=== PATIENT | male | born 1940 | race Caucasian/White ===

== ENCOUNTER 2019-12-08 12:34 | Inpatient (IN) | payer MEDICARE, BC ==
[~2019-12-08] VITALS: Ht 188 cm; Wt 150.0 kg
[2019-12-08] MEDS ORDERED: CefTRIAXone 2gm/D5W 50ml 50 ML IV ONE (13:05)
[2019-12-08] MEDS ORDERED: normal saline 1000ML IV soln IV ONE (13:05)
[2019-12-08] MEDS ORDERED: ipratropium/albuterol 3ml nebule NEB ONE (13:05)
[2019-12-08] MEDS ORDERED: methylPREDNISolone sod succ 125mg/2ml vial IV ONE (13:05)
[2019-12-08 13:36] LABS: BASOPHILS % (AUTO) 0.4 % (0-1); EOSINOPHILS % (AUTO) 0 % (0-6); LYMPHOCYTES # (AUTO) 1.3 X10'3 (1.1-4.8); LYMPHOCYTES % (AUTO) 12.7 % (21-51); MEAN CORPUSCULAR HEMOGLOBIN 32.6 PG (27.0-31.0); MEAN CORPUSCULAR HGB CONC 34.4 g/dL (33.0-36.5); MEAN CORPUSCULAR VOLUME 94.8 FL (78-98); MEAN PLATELET VOLUME 8.5 FL (7.4-10.4); MONOCYTES # (AUTO) 1.7 X10'3 (0-0.9); MONOCYTES % (AUTO) 16.5 % (2-12); NEUTROPHILS # (AUTO) 7.3 X10'3 (1.8-7.7); NEUTROPHILS % (AUTO) 70.4 % (42-75); PLATELET COUNT 148 X10'3 (140-440); RED CELL DISTRIBUTION WIDTH 14.8 % (11.5-14.5); WHITE BLOOD COUNT 10.4 X10'3 (4.5-11.0)
[2019-12-08 13:41] LABS: HEMOGLOBIN 18.6 g/dl (14.0-17.9)
[2019-12-08 13:43] LABS: ALANINE AMINOTRANSFERASE 25 U/L (12-78); ALBUMIN 3.8 G/DL (3.4-5.0); ALBUMIN/GLOBULIN RATIO 1.1 (1.1-1.5); ALKALINE PHOSPHATASE 56 IU/L (46-116); ANION GAP 10 (8-16); ASPARTATE AMINO TRANSFERASE 27 U/L (10-37); BILIRUBIN,TOTAL 1.4 MG/DL (0.1-1.0); BLOOD UREA NITROGEN 26 MG/DL (7-18); BUN/CREATININE RATIO 6.9 (5.4-32.0); CALCIUM 8.9 MG/DL (8.5-10.1); CHLORIDE 104 MMOL/L (99-107); CREATININE 3.79 MG/DL (0.60-1.10); GLUCOSE 122 MG/DL (70-104); SODIUM 139 MMOL/L (135-145); TOTAL CARBON DIOXIDE 24.9 MMOL/L (24-32); TOTAL PROTEIN 7.4 G/DL (6.4-8.2); eGFR 15 ML/MIN
[2019-12-08] MEDS ORDERED: AMLO5TAB PO (13:48)
[2019-12-08] MEDS ORDERED: WARF6TAB49 PO (13:48)
[2019-12-08] MEDS ORDERED: LISI10TA4 PO (13:48)
[2019-12-08] MEDS ORDERED: ondansetron/PF 4mg/2ml inj IV PRN (14:20)
[2019-12-08] MEDS ORDERED: HYDROcodone/acetaminophen 5mg/325mg tablet PO PRN (14:20)
[2019-12-08] MEDS ORDERED: HYDROcodone/acetaminophen 10/325mg tab PO PRN (14:20)
[2019-12-08] MEDS ORDERED: acetaminophen 325mg tablet PO PRN ×2 (14:20)
[2019-12-08] MEDS ORDERED: potassium CL 10mEq/100ml bag 100 ML IV PRN ×2 (14:20)
[2019-12-08] MEDS ORDERED: magnesium 4gm in 100ml NS 100 ML IV PRN (14:20)
[2019-12-08] MEDS ORDERED: magnesium 2GM in 50ml NS 50 ML IV PRN (14:20)
[2019-12-08] MEDS ORDERED: magnesium hydroxide 30ml (MOM) UD suspension PO PRN (14:20)
[2019-12-08] MEDS ORDERED: potassium Cl 20 mEq SR tablet PO PRN ×2 (14:20)
[2019-12-08 14:34] LABS: PLATELET ESTIMATE NORMAL; TOTAL CELLS COUNTED 100
[2019-12-08] MEDS: ipratropium/albuterol 3ml nebule NEB SCH ×2 (15:00→21:20)
[2019-12-08] MEDS: normal saline 1000ml 1,000 ML IV SCH ×2 (15:49→21:55)
[2019-12-08] MEDS: K and/or MAG REPLACEMENT MC SCH (20:00)
--- NOTE | 2019-12-08 20:26 | NUR ---
IPA 347B. PT CURRENTLY SITTING UP AT EDGE OF BED. VSS, AFEBRILE. REPORTS HE HAS INTERMITTENT PAIN TO HIS RIGHT CHEST WITH DEEP INSPIRATION. STATES NO CP OTHERWISE. REPORTS HE USES CPAP AT NIGHT AND HAS HIS OWN UNIT.
[2019-12-08] MEDS: oseltamivir phos 75mg capsule PO SCH (20:38)
[2019-12-08 21:00] VITALS: BP 141/69
[2019-12-08] MEDS ORDERED: warfarin 3mg tablet PO ONE (21:00)
[2019-12-08] MEDS: budesonide 0.5mg/2ml UD nebule IH SCH (21:21)
[2019-12-09 00:37] VITALS: BP 92/51
[2019-12-09 04:55] LABS: BASOPHILS % (AUTO) 0 % (0-1); EOSINOPHILS % (AUTO) 0 % (0-6); HEMATOCRIT 50.7 % (42.0-52.0); HEMOGLOBIN 17.3 g/dl (14.0-17.9); LYMPHOCYTES % (AUTO) 11.9 % (21-51); MEAN CORPUSCULAR HEMOGLOBIN 32.4 PG (27.0-31.0); MEAN CORPUSCULAR HGB CONC 34.2 g/dL (33.0-36.5); MEAN CORPUSCULAR VOLUME 94.8 FL (78-98); MEAN PLATELET VOLUME 8.4 FL (7.4-10.4); MONOCYTES # (AUTO) 0.3 X10'3 (0-0.9); MONOCYTES % (AUTO) 3.4 % (2-12); NEUTROPHILS # (AUTO) 7.4 X10'3 (1.8-7.7); NEUTROPHILS % (AUTO) 84.7 % (42-75); PLATELET COUNT 144 X10'3 (140-440); RED BLOOD COUNT 5.35 X10'6 (4.70-6.10); RED CELL DISTRIBUTION WIDTH 14.9 % (11.5-14.5); WHITE BLOOD COUNT 8.8 X10'3 (4.5-11.0)
[2019-12-09 05:06] LABS: ALANINE AMINOTRANSFERASE 24 U/L (12-78); ALBUMIN 3.4 G/DL (3.4-5.0); ALBUMIN/GLOBULIN RATIO 0.9 (1.1-1.5); ALKALINE PHOSPHATASE 53 IU/L (46-116); ANION GAP 11 (8-16); ASPARTATE AMINO TRANSFERASE 26 U/L (10-37); BILIRUBIN,TOTAL 0.5 MG/DL (0.1-1.0); BLOOD UREA NITROGEN 33 MG/DL (7-18); BUN/CREATININE RATIO 12.9 (5.4-32.0); CHLORIDE 107 MMOL/L (99-107); CREATININE 2.55 MG/DL (0.60-1.10); GLUCOSE 206 MG/DL (70-104); MAGNESIUM 1.9 MG/DL (1.5-2.4); POTASSIUM 3.8 MMOL/L (3.5-5.1); SODIUM 141 MMOL/L (135-145); eGFR 24 ML/MIN
--- NOTE | 2019-12-09 06:18 | NUR ---
Problems reprioritized. Patient report given, questions answered & plan of care reviewed with SHIV Aviles. Addendum: 12/09/19 at 0618 by Frida Marcus RN Amended: Links added.
--- NOTE | 2019-12-09 06:20 | NUR ---
Patient in room [facility] 347. I have received report from SHIV Schaefer and had the opportunity to ask questions and assume patient care.
[2019-12-09 07:00] VITALS: BP 131/68
[2019-12-09] MEDS: K and/or MAG REPLACEMENT MC SCH ×2 (07:06→20:00)
[2019-12-09] MEDS: oseltamivir phos 75mg capsule PO SCH ×2 (07:41→20:20)
[2019-12-09] MEDS ORDERED: azithromycin 250mg tablet PO SCH (08:00)
[2019-12-09] MEDS ORDERED: CefTRIAXone/D5W-Rocephin 1gm 50 ML IV SCH (08:00)
[2019-12-09] MEDS: normal saline 1000ml 1,000 ML IV SCH ×2 (10:17→15:47)
[2019-12-09] MEDS: budesonide 0.5mg/2ml UD nebule IH SCH ×2 (10:32→20:39)
[2019-12-09] MEDS: ipratropium/albuterol 3ml nebule NEB SCH ×3 (10:32→20:39)
[2019-12-09 11:00] VITALS: BP 137/55
[2019-12-09] MEDS ORDERED: LIDOcaine/PRILOcaine 5gm cream TP PRN (18:10)
--- NOTE | 2019-12-09 18:16 | NUR ---
Problems reprioritized. Patient report given, questions answered & plan of care reviewed with SHIV Lim.
[2019-12-09 18:50] VITALS: BP 144/60
[2019-12-09] MEDS: methylPREDNISolone sod succ/PF 40mg inj. IV SCH (20:20)
[2019-12-09] MEDS: lactobacillus rhamnosus 10,000 MMU CELLS/CAPSULE PO SCH (20:20)
[2019-12-09] MEDS ORDERED: warfarin 3mg tablet PO ONE (21:00)
[2019-12-10] VITALS: BP 153/83
[2019-12-10] MEDS: mag hydrox/Alum hydrox/simeth 30ml oral suspension PO PRN ×2 (00:48→10:07)
[2019-12-10] MEDS: normal saline 1000ml 1,000 ML IV SCH (01:30)
[2019-12-10 05:49] LABS: BASOPHILS % (AUTO) 0.1 % (0-1); EOSINOPHILS % (AUTO) 0 % (0-6); LYMPHOCYTES # (AUTO) 0.8 X10'3 (1.1-4.8); MEAN CORPUSCULAR HGB CONC 34.5 g/dL (33.0-36.5); MONOCYTES # (AUTO) 0.4 X10'3 (0-0.9); RED CELL DISTRIBUTION WIDTH 14.7 % (11.5-14.5); WHITE BLOOD COUNT 10.5 X10'3 (4.5-11.0)
[2019-12-10 05:51] LABS: HEMATOCRIT 47.6 % (42.0-52.0); HEMOGLOBIN 16.4 g/dl (14.0-17.9); MEAN CORPUSCULAR HEMOGLOBIN 32.7 PG (27.0-31.0); MEAN CORPUSCULAR VOLUME 94.7 FL (78-98); MEAN PLATELET VOLUME 8.1 FL (7.4-10.4); NEUTROPHILS # (AUTO) 9.2 X10'3 (1.8-7.7); NEUTROPHILS % (AUTO) 87.9 % (42-75); PLATELET COUNT 146 X10'3 (140-440); RED BLOOD COUNT 5.03 X10'6 (4.70-6.10)
--- NOTE | 2019-12-10 06:00 | NUR ---
Patient in room [facility] 347. I have received report from SHIV Lim and had the opportunity to ask questions and assume patient care.
[2019-12-10 06:06] LABS: ALANINE AMINOTRANSFERASE 23 U/L (12-78); ALBUMIN 3.3 G/DL (3.4-5.0); ALKALINE PHOSPHATASE 48 IU/L (46-116); ANION GAP 9 (8-16); ASPARTATE AMINO TRANSFERASE 30 U/L (10-37); BILIRUBIN,TOTAL 0.4 MG/DL (0.1-1.0); BLOOD UREA NITROGEN 31 MG/DL (7-18); BUN/CREATININE RATIO 22.1 (5.4-32.0); CALCIUM 8.1 MG/DL (8.5-10.1); CHLORIDE 109 MMOL/L (99-107); GLUCOSE 194 MG/DL (70-104); POTASSIUM 4.6 MMOL/L (3.5-5.1); SODIUM 144 MMOL/L (135-145); TOTAL CARBON DIOXIDE 26.5 MMOL/L (24-32); TOTAL PROTEIN 6.5 G/DL (6.4-8.2); eGFR 49 ML/MIN
--- NOTE | 2019-12-10 06:13 | NUR ---
Problems reprioritized. Patient report given, questions answered & plan of care reviewed with KESHAV. Addendum: 12/10/19 at 0613 by Marlon Nelson RN Amended: Links added.
[2019-12-10 08:00] VITALS: BP 160/74
[2019-12-10] MEDS: K and/or MAG REPLACEMENT MC SCH ×2 (08:00→20:00)
[2019-12-10] MEDS: budesonide 0.5mg/2ml UD nebule IH SCH ×2 (09:52→19:41)
[2019-12-10] MEDS: ipratropium/albuterol 3ml nebule NEB SCH ×3 (09:52→19:41)
[2019-12-10] MEDS: oseltamivir phos 75mg capsule PO SCH ×2 (10:07→19:59)
[2019-12-10] MEDS: methylPREDNISolone sod succ/PF 40mg inj. IV SCH ×2 (10:07→19:59)
[2019-12-10] MEDS: lactobacillus rhamnosus 10,000 MMU CELLS/CAPSULE PO SCH ×2 (10:08→19:59)
[2019-12-10] MEDS ORDERED: amLODIPine 5mg tablet PO ONE (10:55)
[2019-12-10 11:00] VITALS: BP 178/84
--- NOTE | 2019-12-10 18:00 | NUR ---
Problems reprioritized. Patient report given, questions answered & plan of care reviewed with SHIV Montelongo.
--- NOTE | 2019-12-10 18:30 | NUR ---
Patient in room [facility] 347. I have received report from SHIV Dailey and had the opportunity to ask questions and assume patient care. Addendum: 12/11/19 at 0117 by Cynthia Brown RN Amended: Links added.
[2019-12-10 19:15] VITALS: BP 155/80
[2019-12-10] MEDS ORDERED: furosemide 20 MG/2 ML vial IV ONE (20:30)
[2019-12-10 23:30] VITALS: BP 123/66
[2019-12-11 05:36] LABS: BASOPHILS % (AUTO) 0 % (0-1); EOSINOPHILS % (AUTO) 0 % (0-6); HEMATOCRIT 46.3 % (42.0-52.0); HEMOGLOBIN 15.8 g/dl (14.0-17.9); LYMPHOCYTES # (AUTO) 0.9 X10'3 (1.1-4.8); LYMPHOCYTES % (AUTO) 8.9 % (21-51); MEAN CORPUSCULAR HEMOGLOBIN 32.4 PG (27.0-31.0); MEAN CORPUSCULAR HGB CONC 34.2 g/dL (33.0-36.5); MEAN CORPUSCULAR VOLUME 94.6 FL (78-98); MEAN PLATELET VOLUME 8.5 FL (7.4-10.4); MONOCYTES # (AUTO) 0.5 X10'3 (0-0.9); MONOCYTES % (AUTO) 5.3 % (2-12); NEUTROPHILS # (AUTO) 8.5 X10'3 (1.8-7.7); NEUTROPHILS % (AUTO) 85.8 % (42-75); PLATELET COUNT 146 X10'3 (140-440); RED BLOOD COUNT 4.89 X10'6 (4.70-6.10); RED CELL DISTRIBUTION WIDTH 14.5 % (11.5-14.5)
[2019-12-11 05:51] LABS: ALANINE AMINOTRANSFERASE 26 U/L (12-78); ALBUMIN 3.3 G/DL (3.4-5.0); ALBUMIN/GLOBULIN RATIO 1.1 (1.1-1.5); ALKALINE PHOSPHATASE 46 IU/L (46-116); ANION GAP 8 (8-16); ASPARTATE AMINO TRANSFERASE 33 U/L (10-37); BILIRUBIN,TOTAL 0.5 MG/DL (0.1-1.0); BLOOD UREA NITROGEN 28 MG/DL (7-18); BUN/CREATININE RATIO 20.1 (5.4-32.0); CALCIUM 8.2 MG/DL (8.5-10.1); CHLORIDE 106 MMOL/L (99-107); CREATININE 1.39 MG/DL (0.60-1.10); GLUCOSE 171 MG/DL (70-104); MAGNESIUM 1.9 MG/DL (1.5-2.4); POTASSIUM 4.5 MMOL/L (3.5-5.1); SODIUM 141 MMOL/L (135-145); TOTAL CARBON DIOXIDE 26.8 MMOL/L (24-32); TOTAL PROTEIN 6.4 G/DL (6.4-8.2); eGFR 49 ML/MIN
--- NOTE | 2019-12-11 06:16 | NUR ---
Problems reprioritized. Patient report given, questions answered & plan of care reviewed with SHIV Bright. Addendum: 12/11/19 at 0616 by Cynthia Brown RN Amended: Links added.
--- NOTE | 2019-12-11 06:19 | NUR ---
Patient in room [facility] 347. I have received report from SHIV Montelongo and had the opportunity to ask questions and assume patient care.
[2019-12-11] MEDS: K and/or MAG REPLACEMENT MC SCH ×2 (06:28→20:00)
[2019-12-11 08:00] VITALS: BP 124/74
[2019-12-11] MEDS: methylPREDNISolone sod succ/PF 40mg inj. IV SCH ×2 (08:21→20:25)
[2019-12-11] MEDS: amLODIPine 5mg tablet PO SCH (08:21)
[2019-12-11] MEDS: lisinopril 10 MG tablet PO SCH (08:21)
[2019-12-11] MEDS: lactobacillus rhamnosus 10,000 MMU CELLS/CAPSULE PO SCH ×2 (08:21→20:26)
[2019-12-11] MEDS: oseltamivir phos 75mg capsule PO SCH ×2 (08:21→20:25)
[2019-12-11] MEDS: ipratropium/albuterol 3ml nebule NEB SCH ×3 (09:02→20:43)
[2019-12-11] MEDS: budesonide 0.5mg/2ml UD nebule IH SCH ×2 (09:03→20:43)
--- NOTE | 2019-12-11 11:29 | NUR ---
PAGER ID: [phone] MESSAGE: [id number] Fercho Lance: INR 4.0 SHIV Bright Ext [phone]
[2019-12-11 11:44] VITALS: BP 119/68
--- NOTE | 2019-12-11 18:05 | NUR ---
Problems reprioritized. Patient report given, questions answered & plan of care reviewed with SHIV Montelongo.
--- NOTE | 2019-12-11 18:30 | NUR ---
Patient in room [facility] 347. I have received report from SHIV Bright and had the opportunity to ask questions and assume patient care. Addendum: 12/11/19 at 1937 by Cynthia Brown RN Amended: Links added.
[2019-12-11 20:20] VITALS: BP 120/60
[2019-12-12] VITALS: BP 140/69
[2019-12-12 05:40] LABS: BASOPHILS % (AUTO) 0 % (0-1); EOSINOPHILS % (AUTO) 0 % (0-6); HEMATOCRIT 46.7 % (42.0-52.0); HEMOGLOBIN 15.8 g/dl (14.0-17.9); MEAN CORPUSCULAR HGB CONC 33.8 g/dL (33.0-36.5); MEAN CORPUSCULAR VOLUME 94.5 FL (78-98); MEAN PLATELET VOLUME 8.2 FL (7.4-10.4); MONOCYTES # (AUTO) 0.5 X10'3 (0-0.9); MONOCYTES % (AUTO) 5.5 % (2-12); NEUTROPHILS # (AUTO) 7.1 X10'3 (1.8-7.7); NEUTROPHILS % (AUTO) 82.5 % (42-75); PLATELET COUNT 135 X10'3 (140-440); RED BLOOD COUNT 4.94 X10'6 (4.70-6.10); RED CELL DISTRIBUTION WIDTH 14.4 % (11.5-14.5); WHITE BLOOD COUNT 8.7 X10'3 (4.5-11.0)
[2019-12-12 05:57] LABS: ALANINE AMINOTRANSFERASE 34 U/L (12-78); ALKALINE PHOSPHATASE 41 IU/L (46-116); ANION GAP 6 (8-16); ASPARTATE AMINO TRANSFERASE 40 U/L (10-37); BILIRUBIN,TOTAL 0.7 MG/DL (0.1-1.0); BLOOD UREA NITROGEN 27 MG/DL (7-18); BUN/CREATININE RATIO 22.7 (5.4-32.0); CALCIUM 8.5 MG/DL (8.5-10.1); CHLORIDE 107 MMOL/L (99-107); CREATININE 1.19 MG/DL (0.60-1.10); GLUCOSE 183 MG/DL (70-104); MAGNESIUM 1.9 MG/DL (1.5-2.4); POTASSIUM 4.6 MMOL/L (3.5-5.1); SODIUM 138 MMOL/L (135-145); TOTAL CARBON DIOXIDE 24.6 MMOL/L (24-32); eGFR 59 ML/MIN
--- NOTE | 2019-12-12 06:55 | NUR ---
Patient in room [facility] 347. I have received report from Jayda CHANEY and had the opportunity to ask questions and assume patient care.
[2019-12-12] MEDS: lactobacillus rhamnosus 10,000 MMU CELLS/CAPSULE PO SCH ×2 (07:54→20:53)
[2019-12-12] MEDS: oseltamivir phos 75mg capsule PO SCH ×2 (07:54→20:53)
[2019-12-12] MEDS: lisinopril 10 MG tablet PO SCH (07:55)
[2019-12-12] MEDS: amLODIPine 5mg tablet PO SCH (07:55)
[2019-12-12] MEDS: methylPREDNISolone sod succ/PF 40mg inj. IV SCH ×2 (07:56→20:53)
[2019-12-12] MEDS: K and/or MAG REPLACEMENT MC SCH ×2 (08:00→20:00)
[2019-12-12] MEDS: ipratropium/albuterol 3ml nebule NEB SCH ×3 (08:17→19:57)
[2019-12-12] MEDS: budesonide 0.5mg/2ml UD nebule IH SCH ×2 (08:17→19:57)
[2019-12-12 10:24] VITALS: BP 162/87
[2019-12-12 11:00] VITALS: BP 136/76
--- NOTE | 2019-12-12 13:37 | NUR ---
Eating well, 100% PO intake heart healthy diet. Patient admitted with acute respiratory failure secondary to influenza A pneumonia per MD progress note. No nutrition problem at this time. Meeting nutrition needs. Will follow. Recommend: 1. continue heart healthy diet 2. bowel care as needed, patient does have prn milk of magnesia 3. weight per rx Addendum: 12/12/19 at [address] Amended: Links added.
--- NOTE | 2019-12-12 18:09 | NUR ---
PATIENT UP AND ABOUT IN ROOM, REQUIRING O2/2L FOR SATS 90-92% SHOWERED AND AMBULATED. nO C/O PAIN. NEB TMT PER RT.
--- NOTE | 2019-12-12 18:10 | NUR ---
Problems reprioritized. Patient report given, questions answered & plan of care reviewed with NAZ CHANEY.
[2019-12-12 20:00] VITALS: BP 149/74
--- NOTE | 2019-12-12 21:22 | NUR ---
Patient in room [facility] 347. I have received report from Carrie CHANEY and had the opportunity to ask questions and assume patient care.
[2019-12-13] VITALS: BP 145/80
[2019-12-13 05:18] LABS: BASOPHILS % (AUTO) 0.1 % (0-1); EOSINOPHILS % (AUTO) 0 % (0-6); HEMATOCRIT 47.3 % (42.0-52.0); HEMOGLOBIN 16.3 g/dl (14.0-17.9); LYMPHOCYTES % (AUTO) 10.7 % (21-51); MEAN CORPUSCULAR HEMOGLOBIN 32.3 PG (27.0-31.0); MEAN CORPUSCULAR HGB CONC 34.4 g/dL (33.0-36.5); MEAN CORPUSCULAR VOLUME 93.7 FL (78-98); MEAN PLATELET VOLUME 8.2 FL (7.4-10.4); MONOCYTES # (AUTO) 0.5 X10'3 (0-0.9); MONOCYTES % (AUTO) 5.5 % (2-12); NEUTROPHILS # (AUTO) 7.5 X10'3 (1.8-7.7); NEUTROPHILS % (AUTO) 83.7 % (42-75); PLATELET COUNT 146 X10'3 (140-440); RED BLOOD COUNT 5.05 X10'6 (4.70-6.10); RED CELL DISTRIBUTION WIDTH 14.1 % (11.5-14.5)
[2019-12-13 05:33] LABS: ALANINE AMINOTRANSFERASE 71 U/L (12-78); ALBUMIN 3.1 G/DL (3.4-5.0); ALBUMIN/GLOBULIN RATIO 1.1 (1.1-1.5); ALKALINE PHOSPHATASE 43 IU/L (46-116); ANION GAP 6 (8-16); ASPARTATE AMINO TRANSFERASE 56 U/L (10-37); BILIRUBIN,TOTAL 1.1 MG/DL (0.1-1.0); BLOOD UREA NITROGEN 29 MG/DL (7-18); CALCIUM 8.3 MG/DL (8.5-10.1); CHLORIDE 105 MMOL/L (99-107); CREATININE 1.32 MG/DL (0.60-1.10); GLUCOSE 170 MG/DL (70-104); MAGNESIUM 1.8 MG/DL (1.5-2.4); SODIUM 139 MMOL/L (135-145); TOTAL CARBON DIOXIDE 27.8 MMOL/L (24-32); eGFR 52 ML/MIN
[2019-12-13 07:00] VITALS: BP 179/95
--- NOTE | 2019-12-13 07:05 | NUR ---
Problems reprioritized. Patient report given, questions answered & plan of care reviewed with Olesya CHANEY.
[2019-12-13] MEDS: K and/or MAG REPLACEMENT MC SCH (08:00)
[2019-12-13] MEDS: ipratropium/albuterol 3ml nebule NEB SCH (08:05)
[2019-12-13] MEDS: budesonide 0.5mg/2ml UD nebule IH SCH (08:05)
[2019-12-13] MEDS: lactobacillus rhamnosus 10,000 MMU CELLS/CAPSULE PO SCH (09:58)
[2019-12-13] MEDS: amLODIPine 5mg tablet PO SCH (09:58)
[2019-12-13] MEDS: oseltamivir phos 75mg capsule PO SCH (09:58)
[2019-12-13] MEDS: methylPREDNISolone sod succ/PF 40mg inj. IV SCH (09:58)
[2019-12-13] MEDS: lisinopril 10 MG tablet PO SCH (09:59)
[2019-12-13 10:54] VITALS: BP 143/71
[2019-12-13] MEDS ORDERED: IPRA3AMP9 NEB (12:07)
[2019-12-13 12:11] LABS: ABG BASE EXCESS -6.1 mmol/L (-2.0-3.0); ABG HCO3 16.6 mmol/L (22.0-26.0); ABG OXYGEN SATURATION 91.6 % (95-98); ABG PCO2 (T) 26.9 mmHg (35.0-45.0); ABG PH (T) 7.408 (7.350-7.450); ABG PO2 (T) 64.5 mmHg (83-108); ALLEN'S TEST POSITIVE; FCOHb 0.4 % (0.5-1.5); FMetHb 0.2 % (0.3-1.12); FO2Hb 91.1 % (94-100)
[2019-12-13] MEDS ORDERED: AMOX-419 PO (12:18)
--- NOTE | 2019-12-13 15:30 | NUR ---
PT. DISCHARGED IN A STABLE CONDITION. ANTIBIOTIC AND NEBULIZER ORDERS ENCRYPTED TO PHARMACY IN [place]. SPOKE TO MD JOE ABOUT SOLUMEDROL ADMINISTRATION HERE AND SHE SAID SHE WOULD "TAKE A LOOK AT IT". NO STEROIDS ORDERED. NEBULIZER MACHINE DELIVERED FOR PT, NEBULIZER MEDICATIONS NEEDED DX CODE AT PHARMACY TO BE FILLED, COULD NOT BE VERBAL BUT NEEDED TO BE WRITTEN TALKED TO NAS ROSE AND TARAN FRASER. BRIA WILL F/U ON THIS SITUATION. CALLED PT. HE IS AWARE MEDICATIONS WILL BE WAITING FOR HIM AT PHARMACY. IV DC'D, PRESSURE BANDAGE APPLIED, NO S/SX BLEEDING. NO TELE TO DC. REVIEWED ALL DISCHARGE PAPERWORK WITH PT AND PROVIDED EDUCATION ON INFECTION CONTROL, FLU, VACCINATIONS, PNA, AND DEHYDRATION IN VERBAL AND WRITTEN FORM TO PT. GOOD VERBAL FEEDBACK FROM PT. PT. GATHERED ALL BELONGINGS AND LEFT WITH HIS DAUGHTER. HE WAS ESCORTED OUT OF THE HOSPITAL IN A W/C BY A HOSPITAL STAFF MEMBER. Addendum: 12/17/19 at 1444 by Modesta Patel RN Case Management DC follow up: Pt called as a message was being posted to pt . pt is back in the hospital/[facility]. Thanked pt for the quick phone call, and wished him a speedy recovery.
[2019-12-13] MEDS ORDERED: amox tr/potassium clavulanate 500mg/125mg TAB PO SCH (17:30)
[2019-12-13] MEDS ORDERED: warfarin 3mg tablet PO SCH (21:00)
== END 2019-12-13 15:36 | disposition home or self-care (01) | DRG 193 ==
LOC: ER 12:35 → ED HOLD 14:17 → SUR 3N 21:05
PROVIDERS: ADMIT Family Medicine; ATTEND Family Medicine
DX: J10.01 Influenza due to other identified influenza virus with the same other identified influenza virus pneumonia (principal); J96.01 Acute respiratory failure with hypoxia; N17.0 Acute kidney failure with tubular necrosis; N17.9 Acute kidney failure, unspecified; J44.0 Chronic obstructive pulmonary disease with (acute) lower respiratory infection; J44.1 Chronic obstructive pulmonary disease with (acute) exacerbation; J15.9 Unspecified bacterial pneumonia; E86.0 Dehydration; G47.33 Obstructive sleep apnea (adult) (pediatric); K52.9 Noninfective gastroenteritis and colitis, unspecified; I10 Essential (primary) hypertension; Z79.01 Long term (current) use of anticoagulants; Z80.0 Family history of malignant neoplasm of digestive organs; Z85.46 Personal history of malignant neoplasm of prostate; Z86.711 Personal history of pulmonary embolism; Z87.891 Personal history of nicotine dependence
CPT/HCPCS: 36415; 36600; 71045; 71046; 71250; 80053; 82803; 83605; 83735; 84145; 85018; 85025; 85610; 87040; 87081; 94640; 94667; 94668; 94760; 96374; 96375; 97110; 97116; 97161; 97530; 97535; 99285; G0378; J0696; J1940; J2405; J2920; J2930; J7030; J7626